=== PATIENT | female | born 1945 | race Caucasian/White ===

== ENCOUNTER → 2016-11-16 | Outpatient (CLI) | payer OTHER ==
[~2016-11-16] MED LIST: LAMO200T PO; METO-217 PO; METO25TA3 PO; METO5TAB2 PO; OLAN1TAB7 PO; OMEP20CA9 PO; VENL-273 PO
--- NOTE | 2016-11-16 16:07 | MAMMOGRAPHY REPORT ---
BILATERAL DIGITAL SCREENING MAMMOGRAM WITH CAD: 11/16/2016 CLINICAL HISTORY: Routine screening. TECHNIQUE: Bilateral CC and MLO views were obtained. Current study was also evaluated with a Compute r Aided Detection (CAD) system. COMPARISON: Comparison is made to exams dated: 10/09/2015 mammogram, 10/07/2014 mammogram, 10/01/2013 m ammogram, 09/28/2012 mammogram, 09/28/2011 mammogram, and 03/03/2009 mammogram - [facility]. BREAST COMPOSITION: There are scattered areas of fibroglandular density in both breasts. FINDINGS: There are stable loosely grouped round and punctate microcalcifications in the central righ t breast, which appears similar on all available prior mammograms dating back to at least 12/19/2007, therefore likely benign. No new suspicious mass, architectural distortion or cluster of microcalcif ications is seen. IMPRESSION: ACR BI-RADS CATEGORY 1: NEGATIVE There is no mammographic evidence of malignancy. A 1 year screening mammogram is recommended. The pa tient will receive written notification of the results. Approximately 10% of breast cancers are not detected with mammography. A negative mammographic report should not delay biopsy if a clinically suggestive mass is present. Brittni Daly M.D. ay/:11/16/2016 15:12:49 Community Health Worker: Mariluz RAJPUT(R)(M), [facility] letter sent: Normal 1/2 BI-RADS Code: ACR BI-RADS Category 1: Negative
== END | disposition home or self-care (01) ==
LOC: C.MAMM 13:56
PROVIDERS: ATTEND Nurse Practitioner
DX: Z12.31 Encounter for screening mammogram for malignant neoplasm of breast (principal)

== ENCOUNTER 2016-12-14 14:30 | Emergency (ER) | payer OTHER ==
[~2016-12-14] VITALS: Ht 167.6 cm; Wt 76.8 kg
[~2016-12-14 14:30] MED LIST changes: -LAMO200T PO; -METO25TA3 PO; -OLAN1TAB7 PO; -OMEP20CA9 PO; -VENL-273 PO
[2016-12-14 14:38] VITALS: TEMP 36.7; Ht 167.6 cm; Wt 76.8 kg
[2016-12-14] MEDS ORDERED: SODIUM CHLORIDE 0.9% 500ML 500 ML IV STA (15:58)
[2016-12-14 16:13] VITALS: O2SAT 95
--- NOTE | 2016-12-14 16:14 | DIAGNOSTIC IMAGING REPORT ---
CHEST ONE VIEW PORTABLE CLINICAL HISTORY: tachycardia, SOB COMPARISON STUDY: 08/14/2013 FINDINGS: There is persistent elevation/eventration left hemidiaphragm. There is left basilar subsegmental atelectatic change. There is no failure. The right lung is clear. No significant pleural effusions are visualized.[ IMPRESSION: Stable elevation/eventration left hemidiaphragm with left basilar atelectasis. No acute findings Electronically signed by: Johnny Paulino M.D. 12/14/2016 4:13 PM Dictated Date/Time: 12/14/2016 4:12 PM
[2016-12-14 16:32] LABS: BASO % 0.3 %; BASO ABS # 0.02 K/uL (0-0.2); COMPLETE YES; EOS % 1.6 %; HEMATOCRIT 45.8 % (37-47); IG% 0.2 %; LYMPH % 17.8 %; LYMPH ABS # 1.14 K/uL (1.2-3.4); MEAN CELL VOLUME 88.4 fL (80-100); MEAN CORPUSCULAR HEMOGLOBIN 28.6 pg (25-34); MEAN CORPUSCULAR HGB CONC 32.3 g/dl (32-36); MONO % 8.9 %; NEUT % 71.2 %; PLATELET COUNT 206 K/uL (130-400); RED BLOOD COUNT 5.18 M/uL (4.2-5.4); WHITE BLOOD COUNT 6.39 K/uL (4.8-10.8)
--- NOTE | 2016-12-14 16:41 | EMERGENCY ROOM VISIT NOTE ---
History Report prepared by Joel: Chayo Bobo Under the Supervision of: Dr. Phi Munoz M.D. First contact with patient: 15:46 Chief Complaint: TACHYCARDIA Stated Complaint: PULSE RATE HIGH Nursing Triage Summary: Pt c/o "Beating in my throat" for 1 1/2 hours. States history of the same a few years ago, tachycardia. History of Present Illness The patient is a 71 year old white female with a past medical history of tachycardia, depression, and anxiety who presents to the ED with a cc of tachycardia beginning 2 hours [employer]. She was just going about her usual routine when her symptoms started. She was not asleep. She does use caffeine. The patient states that she had a similar episode 4 years ago. She was prescribed metoprolol 100mg once daily, which she recently stopped taking, "Because I was doing so well." Positive shortness of breath. Negative sore throat, cough, fevers, chills, chest pain, abdominal pain, pain or swelling in the legs, recent travel, recent surgery, estrogen use. She denies any recent changes to her medications. She denies any personal or family history of thyroid issues. Source of History: patient Onset: 2 hours [employer] Position: chest Quality: other (tachycardia) Timing: constant Associated Symptoms: + SOB, No fevers, No chills, No sorethroat, No cough, No chest pain, No abdominal pain Review of Systems See HPI for pertinent positives and negatives. A total of ten systems were reviewed and were otherwise negative. Past Medical & Surgical Medical Problems: (1) Acute gastritis (2) Acute gastritis (3) Bipolar disorder, unspecified (4) Depression (5) Esophageal reflux (6) Gastroparesis (7) Unstable angina (8) Unstable angina Family History Diabetes mellitus Heart disease Social History Smoking Status: Never Smoker Smokeless Tobacco Use: No Alcohol Use: none Drug Use: none Marital Status: Housing Status: lives with family Occupation Status: employed Current/Historical Medications Scheduled Lamotrigine (Lamictal), 300 MG PO QAM Metoprolol Succ (Toprol Xl) (Toprol-Xl), 25 MG PO BID Metoprolol Succinate (Toprol Xl), 50 MG PO DAILY Olanzapine (Zyprexa), 2.5-5 MG PO HS Venlafaxine Hcl (Venlafaxine Hcl Er), 75 MG PO QAM Scheduled PRN Omeprazole (Prilosec), 20 MG PO DAILY PRN for ACID REFLUX Allergies Coded Allergies: No Known Allergies (Verified , 03/02/11) Physical Exam Vital Signs Date Time Temp Pulse Resp B/P (MAP) Pulse Ox O2 Delivery O2 Flow Rate FiO2 12/14/16 18:24 88 18 137/82 95 12/14/16 17:37 81 16 140/98 97 Room Air 12/14/16 16:25 84 12/14/16 16:13 95 Room Air 12/14/16 16:13 84 20 152/94 95 Room Air 12/14/16 14:38 36.7 111 18 157/94 96 Room Air Physical Exam GENERAL: Awake, alert, well-appearing, NAD HENT: Normocephalic, atraumatic. EYES: Normal conjunctiva. Sclera non-icteric. NECK: Supple. No nuchal rigidity. FROM. RESPIRATORY: Bibasilar crackles, no rhonchi or wheezing CARDIAC: Tachycardic rate and regular rhythm, no MRG ABDOMEN: Soft, NTND, BS+ MSK: No chest wall TTP, no LE edema, no calf pain bilaterally, 2+ DP pulses NEURO: GCS 15, CN 2-12 intact, moves all 4s on command SKIN: No rash or jaundice noted. Medical Decision & Procedures ER Provider Diagnostic Interpretation: Radiology results as stated below per my review and radiologist interpretation: CHEST ONE VIEW PORTABLE CLINICAL HISTORY: tachycardia, SOB COMPARISON STUDY: 08/14/2013 FINDINGS: There is persistent elevation/eventration left hemidiaphragm. There is left basilar subsegmental atelectatic change. There is no failure. The right lung is clear. No significant pleural effusions are visualized.[ IMPRESSION: Stable elevation/eventration left hemidiaphragm with left basilar atelectasis. No acute findings Electronically signed by: Johnny Paulino M.D. 12/14/2016 4:13 PM Dictated Date/Time: 12/14/2016 4:12 PM Laboratory Results 12/14/16 16:13 Red Blood Count 5.18, Mean Corpuscular Volume 88.4, Mean Corpuscular Hemoglobin 28.6, Mean Corpuscular Hemoglobin Concent 32.3, Mean Platelet Volume 11.0, Neutrophils (%) (Auto) 71.2, Lymphocytes (%) (Auto) 17.8, Monocytes (%) (Auto) 8.9, Eosinophils (%) (Auto) 1.6, Basophils (%) (Auto) 0.3, Neutrophils # (Auto) 4.55, Lymphocytes # (Auto) 1.14, Monocytes # (Auto) 0.57, Eosinophils # (Auto) 0.10, Basophils # (Auto) 0.02 12/14/16 16:13 Test 12/14/16 16:13 12/14/16 16:19 White Blood Count 6.39 K/uL (4.8-10.8) Red Blood Count 5.18 M/uL (4.2-5.4) Hemoglobin 14.8 g/dL (12.0-16.0) Hematocrit 45.8 % (37-47) Mean Corpuscular Volume 88.4 fL (80-100) Mean Corpuscular Hemoglobin 28.6 pg (25-34) Mean Corpuscular Hemoglobin Concent 32.3 g/dl (32-36) Platelet Count 206 K/uL (130-400) Mean Platelet Volume 11.0 fL (7.4-10.4) Neutrophils (%) (Auto) 71.2 % Lymphocytes (%) (Auto) 17.8 % Monocytes (%) (Auto) 8.9 % Eosinophils (%) (Auto) 1.6 % Basophils (%) (Auto) 0.3 % Neutrophils # (Auto) 4.55 K/uL (1.4-6.5) Lymphocytes # (Auto) 1.14 K/uL (1.2-3.4) Monocytes # (Auto) 0.57 K/uL (0.11-0.59) Eosinophils # (Auto) 0.10 K/uL (0-0.5) Basophils # (Auto) 0.02 K/uL (0-0.2) RDW Standard Deviation 47.6 fL (36.4-46.3) RDW Coefficient of Variation 14.8 % (11.5-14.5) Immature Granulocyte % (Auto) 0.2 % Immature Granulocyte # (Auto) 0.01 K/uL (0.00-0.02) Anion Gap 4.0 mmol/L (3-11) Est Creatinine Clear Calc Drug Dose 55.2 ml/min Estimated GFR () 68.9 Estimated GFR (Non- 59.4 BUN/Creatinine Ratio 13.2 (10-20) Calcium Level 9.0 mg/dl (8.5-10.1) Phosphorus Level 3.0 mg/dl (2.5-4.9) Magnesium Level 2.4 mg/dl (1.8-2.4) Thyroid Stimulating Hormone (TSH) 1.270 uIu/ml (0.300-4.500) Bedside Troponin I < 0.030 ng/ml (0-0.045) Laboratory results reviewed by me Medications Administered Medications (Trade) Dose Ordered Sig/Pérez Route Start Time Stop Time Status Last Admin Dose Admin Sodium Chloride 500 ml @ 500 mls/hr Q1H STAT IV 12/14/16 15:58 12/14/16 16:57 DC 12/14/16 15:58 500 MLS/HR Metoprolol Succinate (Toprol Xl Tab) 25 mg ONE STAT PO 12/14/16 17:02 12/14/16 17:03 DC 12/14/16 17:37 25 MG ECG Indication: tachycardia Rate (beats per minute): 92 Rhythm: normal sinus Findings: Q waves (lead 3), no ectopy ED Course 1546: The patient was evaluated in room B8. A complete history and physical exam was performed. 1558: NSS 500 ml @ 500 mls/hr IV 1657: I updated the patient and her . They are in agreement with the treatment plan. 1702: Toprol XI tab 25 mg PO Medical Decision Differential diagnosis: Etiologies such as premature contractions, electrolyte abnormality, cardiac dysrhythmia, thyroid dysfunction, pulmonary embolism, infection, gastrointestinal, as well as others were entertained. Patient was evaluated at the bedside. The patient's heart rate had improved by the time of evaluation. Patient's EKG fairly unremarkable. Patient had negative troponin as well as fairly unremarkable blood work with normal TSH. Patient was feeling much improved. Patient of note has stopped taking her by mouth beta kera back. Patient was given 25 mg of Toprol XL. Patient was observed and had no abnormal drops in blood pressure. Patient was otherwise a symptomatic. Patient was feeling improved. Patient was told to begin taking the medication 25 mg twice a day but was told to take her pulse prior to taking her medication and if it was less than or equal to 70 bpm she should skip a dose. Patient was told to follow up with her PCP in order to further take her medications and tailor them to her. Patient was strict follow-up discharge, return precautions. Patient care patient is discharged home. Medication Reconcilliation Current Medication List: was personally reviewed by me Blood Pressure Screening Patient's blood pressure: Elevated blood pressure Blood pressure disposition: Referred to PCP Impression Primary Impression: Tachycardia Additional Impressions: Dehydration Noncompliance with medication regimen Scribe Attestation The scribe's documentation has been prepared under my direction and personally reviewed by me in its entirety. I confirm that the note above accurately reflects all work, treatment, procedures, and medical decision making performed by me. Departure Information Dispostion Home / Self-Care Prescriptions Metoprolol Succ (Toprol Xl) (Toprol-Xl) 25 Mg Tabcr 25 MG PO BID for 30 Days, #60 TAB Prov: Phi Munoz M.D. 12/14/16 Referrals Marycarmen Zaldivar C.R.N.P (PCP) Patient Instructions ED Palpitations, Metoprolol extended-release tablets, My [facility] Additional Instructions Please return to the emergency department if you have worsening or recurrent symptoms not amenable to at-home treatment. Please call for a follow-up appointment with her primary care physician. Please take your medications as prescribed. If you have other concerns and/or complaints please feel free to also call your primary care physician's office or return the ED for further evaluation, management, and treatment. Please take your medication (Toprol Xl) as prescribed, but please take your pulse prior to taking your medication and if it is < 70, please skip a dose. Please follow up with your PCP to better manage this medication. You were found to have an elevated blood pressure today (>120 sytolic or >90 diastolic). Per medicare guidelines, you need to follow up with this blood pressure screening with your Primary Care Physician (PCP). For a new PCP call [phone]. You have been examined and treated today on an emergency basis only. This is not a substitute for, or an effort to provide, complete comprehensive medical care. It is impossible to recognize and treat all injuries or illnesses in a single emergency department visit. It is therefore important that you follow up closely with [facility], your PCP, and/or your specialists including a linseed oil temperer if need be. Call as soon as possible for an appointment. Thank you for your time and consideration. I look forward to speaking with you again soon. Please don't hesitate to call us if you have any questions. Problem Qualifiers
[2016-12-14 16:45] LABS: BUN/CREATININE RATIO 13.2 (10-20); CREATININE 0.95 mg/dl (0.60-1.20); MAGNESIUM 2.4 mg/dl (1.8-2.4); POTASSIUM 4.1 mmol/L (3.5-5.1)
[2016-12-14 16:56] LABS: THYROID STIMULATING HORMONE 1.27 uIu/ml (0.300-4.500)
[2016-12-14] MEDS ORDERED: METOPROLOL SUCC 25MG EXT REL TAB PO STA (17:02)
[2016-12-14] MEDS ORDERED: METO25TA3 PO (18:08)
[2016-12-14 18:24] VITALS: BP 137/82; PULSE 88; O2SAT 95
[2016-12-14] MEDS ORDERED: OMEP20CA9 PO (22:08)
[2016-12-14] MEDS ORDERED: OLAN1TAB7 PO (22:40)
[2016-12-14] MEDS ORDERED: VENL-273 PO (22:40)
[2016-12-14] MEDS ORDERED: LAMO200T PO (22:40)
== END 2016-12-14 18:26 | disposition home or self-care (01) ==
LOC: C.EDB 14:31
DX: R00.0 Tachycardia, unspecified (principal); E86.0 Dehydration; Z91.14 Patient's other noncompliance with medication regimen; F31.9 Bipolar disorder, unspecified; F41.9 Anxiety disorder, unspecified; Z83.3 Family history of diabetes mellitus; Z79.899 Other long term (current) drug therapy

== ENCOUNTER → 2016-12-21 | Outpatient (CLI) | payer OTHER ==
[~2016-12-21] MED LIST changes: +LAMO200T PO; +METO25TA3 PO; -METO5TAB2 PO; +OLAN1TAB7 PO; +OMEP20CA9 PO; +VENL-273 PO
[2016-12-21 13:32] LABS: CHOLESTEROL/HDL RATIO 2.9
== END | disposition home or self-care (01) ==
LOC: C.LABPVFM 10:23
PROVIDERS: ATTEND Family Medicine
DX: E78.5 Hyperlipidemia, unspecified (principal)

== ENCOUNTER → 2017-05-26 | Outpatient (CLI) | payer OTHER ==
[~2017-05-26] MED LIST changes: -METO25TA3 PO
[2017-05-26 18:17] LABS: BLOOD UREA NITROGEN 21 mg/dl (7-18); CALCIUM 9.3 mg/dl (8.5-10.1); CARBON DIOXIDE 29 mmol/L (21-32); CREATININE 1.07 mg/dl (0.60-1.20); GLUCOSE 96 mg/dl (70-99); POTASSIUM 3.8 mmol/L (3.5-5.1); SODIUM 139 mmol/L (136-145)
== END | disposition home or self-care (01) ==
LOC: C.LABPVFM 15:19
PROVIDERS: ATTEND Nurse Practitioner
DX: I47.1 Supraventricular tachycardia (principal); E78.5 Hyperlipidemia, unspecified

== ENCOUNTER → 2017-07-20 | Outpatient (CLI) | payer OTHER ==
--- NOTE | 2017-07-20 13:31 | DIAGNOSTIC IMAGING REPORT ---
L-SPINE MIN 4 VIEWS ROUTINE CLINICAL HISTORY: Low back pain COMPARISON STUDY: 06/26/2013 FINDINGS: There is no pathologic bowel dilatation. There is an old mild superior endplate L1 compression deformity. There is marked disc space narrowing at the L5-S1 level. There is a grade 1 spondylolisthesis of L4 on L5. There are no acute fractures. IMPRESSION: 1. No acute fractures 2. Grade 1 spondylolisthesis of L4 on L5 3. Marked disc space narrowing at the L5-S1 level. Electronically signed by: Johnny Paulino M.D. 07/20/2017 1:29 PM Dictated Date/Time: 07/20/2017 1:29 PM
== END | disposition home or self-care (01) ==
LOC: C.RADPV 13:10
PROVIDERS: ATTEND Family Medicine
DX: M54.5 Low back pain (principal); M43.16 Spondylolisthesis, lumbar region; M51.37 Other intervertebral disc degeneration, lumbosacral region

== ENCOUNTER → 2017-11-21 | Outpatient (CLI) | payer OTHER ==
--- NOTE | 2017-11-22 14:44 | MAMMOGRAPHY REPORT ---
BILATERAL DIGITAL SCREENING MAMMOGRAM TOMOSYNTHESIS WITH CAD: 11/21/2017 CLINICAL HISTORY: Routine screening. Patient has no complaints. TECHNIQUE: The study was acquired using full field digital technology and interpreted from soft copy. Breast tomosynthesis in addition to standard 2D mammography was performed. Current study was also ev aluated with a Computer Aided Detection (CAD) system. COMPARISON: Comparison is made to exams dated: 11/16/2016 mammogram, 10/09/2015 mammogram, 10/07/2014 ma mmogram, 10/01/2013 mammogram, 09/28/2012 mammogram, and 10/04/2011 mammogram - [facility]. BREAST COMPOSITION: There are scattered areas of fibroglandular density in both breasts. FINDINGS: There are stable loosely grouped rounded punctate calcifications in the retroareolar, middl e to posterior right breast, that appears similar in number and configuration dating back to at least 12/19/2007, therefore likely benign. No new suspicious mass, architectural distortion or cluster of mi crocalcifications is seen. IMPRESSION: ACR BI-RADS CATEGORY 1: NEGATIVE There is no mammographic evidence of malignancy. A 1 year screening mammogram is recommended.( 019) The patient will receive written notification of the results. Some breast cancers are not detected with mammography. A negative mammographic report should not silvana y biopsy if a clinically suggestive mass is present. Brittni Daly M.D. ay/:11/21/2017 17:09:34 Geopolitics Teacher: RT Shahram(Winsome)(M), [facility] letter sent: Normal 1/2 BI-RADS Code: ACR BI-RADS Category 1: Negative
== END | disposition home or self-care (01) ==
LOC: C.MAMM 13:41
PROVIDERS: ATTEND Nurse Practitioner
DX: Z12.31 Encounter for screening mammogram for malignant neoplasm of breast (principal)